=== PATIENT | male | born 1995 | race Caucasian/White ===

== ENCOUNTER 2018-04-05 15:12 | Emergency (ER) | payer OTHER ==
--- NOTE | 2018-04-05 16:29 | EDPHY ---
H & P Stated Complaint: R back pain Time Seen by Provider: 04/05/18 15:52 HPI/ROS: CHIEF COMPLAINT: Right-sided back pain HISTORY OF PRESENT ILLNESS: 23-year-old male presents with right back pain. Onset of right-sided mid back pain yesterday. The pain is mild and increases with deep inspiration and movement. Alleviated with Aleve last night. No pain medications tried today. No other associated symptoms. No cough, fever, abdominal pain, shortness of breath. No recent trauma or known injury. REVIEW OF SYSTEMS: complete 10 point ROS reviewed and is negative except for the noted elements in the HPI - Personal History Current Tetanus/Diphtheria Vaccine: Yes Current Tetanus Diphtheria and Acellular Pertussis (TDAP): Yes - Medical/Surgical History Hx Asthma: No Hx Chronic Respiratory Disease: No Hx Diabetes: No Hx Cardiac Disease: No Hx Renal Disease: No Hx Cirrhosis: No Hx Alcoholism: No Hx HIV/AIDS: No Hx Splenectomy or Spleen Trauma: No Other PMH: denies - Social History Smoking Status: Never smoked - Physical Exam Exam: General Appearance: Alert, pleasant Eyes: Pupils equal and round, no conjunctival pallor ENT, Mouth: Mucous membranes moist Neck: Normal inspection Respiratory: Lungs are clear to auscultation Cardiovascular: Regular rate and rhythm Gastrointestinal: Abdomen is soft and nontender Back: Normal inspection, Point tenderness over the right lower thoracic paraspinous musculature Neurological: A&O, nonfocal, normal gait Skin: Warm and dry, no rash Extremities: Normal inspection Psychiatric: Mood and affect normal Constitutional: Initial Vital Signs Temperature (C) 37.4 C 04/05/18 15:31 Heart Rate 103 H 04/05/18 15:31 Respiratory Rate 16 04/05/18 15:31 Blood Pressure 151/83 H 04/05/18 15:31 O2 Sat (%) 97 04/05/18 15:31 O2 Delivery Mode Room Air Allergies/Adverse Reactions: Penicillins Allergy (Verified 04/05/18 15:31) Home Medications: Medication Instructions Recorded NK [No Known Home Meds] 04/05/18 Medical Decision Making - Diagnostics Imaging Results: Imaging Impressions Chest X-Ray 04/05/18 15:52 Impression: Normal chest x-ray. Imaging: I viewed and interpreted images myself ED Course/Re-evaluation: This patient presents with right-sided back pain, consistent with musculoskeletal etiology. Chest x-ray is unremarkable; no evidence of pneumonia or pneumothorax. Ibuprofen 600 mg orally given. Warning signs discussed. Follow-up at [facility]. Differential Diagnosis: Includes though not limited to pneumothorax, pneumonia, kidney stone, shingles Departure - Departure Disposition: Home, Routine, Self-Care Clinical Impression: Thoracic back pain Qualifiers: Chronicity: acute Back pain laterality: right Qualified Code(s): M54.6 - Pain in thoracic spine Condition: Good Instructions: Back Pain (ED) Additional Instructions: Ibuprofen 600 mg 3 times daily while the pain persists. Return for worsening symptoms or any concerns. Referrals: PAULA Morales,. [Clinic] - As per Instructions
[2018-04-05] MEDS ORDERED: IBUPROFEN 600 MG TAB PO ONE (16:34)
[2018-04-05 16:59] VITALS: BP 145/78
== END 2018-04-05 17:00 | disposition home or self-care (01) ==
DX: M54.6 Pain in thoracic spine (principal)